=== PATIENT | female | born 1940 | race Caucasian/White ===

== ENCOUNTER 2018-05-08 01:51 | Inpatient (IN) | payer OTHER ==
[~2018-05-08] VITALS: Ht 160 cm; Wt 79.9 kg
[~2018-05-08 01:51] MED LIST: ADULT LOW DOSE81 M1 PO; ADVAIR 100/501 DISK IH; AZITHROMYCIN250 MG PO; BACTRIM,SEPT1 TABLET PO; CEFTIN500 MG PO; ESTRACE0.5 MG PO; FLORASTOR250 MG PO; HYDROCHLOROTH12.5 M1 PO; LEVAQUIN750 MG PO; LISINOPRIL10 MG PO; Levaquin PO; PERCOCET 5/31 TABLET PO; PRAVACHOL40 MG PO; PREDNISONE5 M1 PO; PREMARIN1.25 MG PO; PRINIVIL20 MG PO; SYMBICORT60 INHALAT IH; TYLENOL REGULA325 MG PO; VITAMIN D31000 UNIT PO; ZETIA10 MG PO; Zocor PO
[2018-05-08 02:50] LABS: ALBUMIN 3.4 g/dL (3.2-4.8); CHLORIDE 110 mEq/L (99-109); POTASSIUM 4.2 mEq/L (3.7-5.4); SODIUM 142 mEq/L (136-147)
[2018-05-08 02:55] LABS: GLUCOSE 129 mg/dL (70-99); TOTAL BILIRUBIN 0.2 mg/dL (0.0-1.0); TOTAL PROTEIN 5.6 g/dL (6.4-8.3)
[2018-05-08 02:56] LABS: ALKALINE PHOSPHATASE 69 IU/L (3-129); CREATININE 1.1 mg/dL (0.6-1.3); GFR ESTIMATE (CALCULATED) 51 mL/min/
[2018-05-08 02:57] LABS: UREA NITROGEN (BUN) 25 mg/dL (9-23)
[2018-05-08 02:58] LABS: AST (GOT) 19 IU/L (2-34); DIRECT BILIRUBIN 0.1 mg/dL (0.0-0.3)
[2018-05-08 02:59] LABS: ALT (GPT) 24 IU/L (3-49)
[2018-05-08 03:00] LABS: LIPASE 15 U/L (1.0-51.0)
[2018-05-08 03:01] LABS: TROP-I INTERPRETATION NEGATIVE; TROPONIN-I < 0.01 ng/mL (0.0-0.30)
[2018-05-08 03:43] LABS: BASOPHIL (%) 0.8 % (0-1); BASOPHIL COUNT 0.1 K/uL (0-0.1); EOSINOPHIL (%) 2.4 % (0-5); EOSINOPHIL COUNT 0.2 K/uL (0-0.3); HEMATOCRIT 30.7 % (36.0-46.0); HEMOGLOBIN 10.5 G/DL (11.9-15.5); IMMATURE GRANULOCYTE (%) 0.3 % (0.0-0.7); LYMPHOCYTE (%) 33.6 % (15-42); LYMPHOCYTE COUNT 2.5 K/uL (1.0-2.8); MCH 29.8 PG (29.0-34.0); MCHC 34.2 G/DL (30.0-36.0); MCV 87.2 FL (83-99); MONOCYTE COUNT 0.5 K/uL (0-0.8); NEUTROPHIL (%) 56.9 % (45-76); NEUTROPHIL COUNT 4.3 K/uL (1.8-6.4); RBC DIS.WIDTH-CV 14.5 % (11.8-14.6); RBC DIS.WIDTH-SD 46.3 % (39-53); RED BLOOD COUNT 3.52 M/uL (3.80-5.20); WHITE BLOOD COUNT 7.5 K/uL (4.1-10.2)
[2018-05-08 04:21] VITALS: BP 76/62
[2018-05-08 04:35] VITALS: BP 109/46
[2018-05-08 05:00] LABS: PLAT.SUFFICIENCY VERY DECREASED; PLATELET COUNT 87 K/uL (156-360)
[2018-05-08 05:34] LABS: INTER. NORMALIZED RATIO 1.2
[2018-05-08 07:48] LABS: HEMOGLOBIN 9.2 G/DL (11.9-15.5); MCH 30.5 PG (29.0-34.0); MCHC 34.1 G/DL (30.0-36.0); MCV 89.4 FL (83-99); PLATELET COUNT 201 K/uL (156-360); RBC DIS.WIDTH-CV 14.5 % (11.8-14.6); RBC DIS.WIDTH-SD 46.6 % (39-53); RED BLOOD COUNT 3.02 M/uL (3.80-5.20); WHITE BLOOD COUNT 7.7 K/uL (4.1-10.2)
[2018-05-08 08:03] LABS: CHLORIDE 115 MEQ/L (99-109); POTASSIUM 4.7 MEQ/L (3.7-5.4); SODIUM 143 MEQ/L (136-147)
[2018-05-08 08:09] LABS: CREATININE 0.9 MG/DL (0.6-1.3); GFR ESTIMATE (CALCULATED) > 59 mL/min/; GLUCOSE 138 mg/dL (70-99); UREA NITROGEN (BUN) 23 mg/dL (9-23)
[2018-05-08 12:33] LABS: HEMATOCRIT 33.8 % (36.0-46.0); MCH 30.2 PG (29.0-34.0); MCHC 33.1 G/DL (30.0-36.0); MCV 91.1 FL (83-99); RBC DIS.WIDTH-CV 14.7 % (11.8-14.6); RBC DIS.WIDTH-SD 49.3 % (39-53); WHITE BLOOD COUNT 7.7 K/uL (4.1-10.2)
[2018-05-08 13:30] LABS: PLAT.SUFFICIENCY ADEQUATE; PLATELET COUNT 152 K/uL (156-360)
[2018-05-08 13:31] LABS: HEMOGLOBIN 11.2 G/DL (11.9-15.5); RED BLOOD COUNT 3.71 M/uL (3.80-5.20)
[2018-05-08 16:00] VITALS: BP 128/54
[2018-05-08 16:30] VITALS: BP 128/54
[2018-05-08 21:11] VITALS: BP 138/63
[2018-05-08 23:54] VITALS: BP 136/61
[2018-05-09] VITALS (7 sets, daily range): BP systolic 132–190; BP diastolic 60–76
[2018-05-09 05:50] LABS: CHLORIDE 119 MEQ/L (99-109); CREATININE 1.1 MG/DL (0.6-1.3); GFR ESTIMATE (CALCULATED) 51 mL/min/; GLUCOSE 154 mg/dL (70-99); SODIUM 145 MEQ/L (136-147); UREA NITROGEN (BUN) 20 mg/dL (9-23)
[2018-05-09 08:39] LABS: HEMATOCRIT 25.4 % (36.0-46.0); HEMOGLOBIN 8.6 G/DL (11.9-15.5); MCH 30.7 PG (29.0-34.0); MCHC 33.9 G/DL (30.0-36.0); MCV 90.7 FL (83-99); PLATELET COUNT 176 K/uL (156-360); RBC DIS.WIDTH-CV 15.5 % (11.8-14.6); RBC DIS.WIDTH-SD 51.3 % (39-53); WHITE BLOOD COUNT 10.1 K/uL (4.1-10.2)
[2018-05-09] MEDS ORDERED: LISINOPRIL40 MG PO (14:44)
[2018-05-10] VITALS (8 sets, daily range): BP systolic 132–174; BP diastolic 60–74
[2018-05-10 05:36] LABS: HEMOGLOBIN 7.7 G/DL (11.9-15.5); MCH 29.8 PG (29.0-34.0); MCHC 32.1 G/DL (30.0-36.0); PLATELET COUNT 203 K/uL (156-360); RBC DIS.WIDTH-CV 15.8 % (11.8-14.6); RBC DIS.WIDTH-SD 53.5 % (39-53); RED BLOOD COUNT 2.58 M/uL (3.80-5.20)
[2018-05-10 06:02] LABS: CHLORIDE 116 MEQ/L (99-109); GFR ESTIMATE (CALCULATED) 57 mL/min/; GLUCOSE 116 mg/dL (70-99); POTASSIUM 4.2 MEQ/L (3.7-5.4); SODIUM 142 MEQ/L (136-147); UREA NITROGEN (BUN) 17 mg/dL (9-23)
[2018-05-10 12:56] LABS: BASOPHIL (%) 0.3 % (0-1); EOSINOPHIL COUNT 0.1 K/uL (0-0.3); HEMATOCRIT 23.5 % (36.0-46.0); HEMOGLOBIN 7.9 G/DL (11.9-15.5); IMMATURE GRANULOCYTE (%) 0.4 % (0.0-0.7); LYMPHOCYTE (%) 13.5 % (15-42); LYMPHOCYTE COUNT 1.2 K/uL (1.0-2.8); MCH 30.2 PG (29.0-34.0); MCHC 33.6 G/DL (30.0-36.0); MCV 89.7 FL (83-99); MONOCYTE (%) 6.4 % (3-12); MONOCYTE COUNT 0.6 K/uL (0-0.8); NEUTROPHIL (%) 78.4 % (45-76); PLATELET COUNT 198 K/uL (156-360); RBC DIS.WIDTH-CV 15.7 % (11.8-14.6); RBC DIS.WIDTH-SD 52.2 % (39-53); RED BLOOD COUNT 2.62 M/uL (3.80-5.20); WHITE BLOOD COUNT 8.9 K/uL (4.1-10.2)
[2018-05-11] VITALS (9 sets, daily range): BP systolic 158–210; BP diastolic 56–84
[2018-05-11 05:57] LABS: BASOPHIL (%) 0.5 % (0-1); BASOPHIL COUNT 0.1 K/uL (0-0.1); EOSINOPHIL (%) 0.7 % (0-5); EOSINOPHIL COUNT 0.1 K/uL (0-0.3); HEMATOCRIT 25.3 % (36.0-46.0); HEMOGLOBIN 8.4 G/DL (11.9-15.5); IMMATURE GRANULOCYTE (%) 0.5 % (0.0-0.7); LYMPHOCYTE (%) 8.8 % (15-42); LYMPHOCYTE COUNT 0.8 K/uL (1.0-2.8); MCH 30.1 PG (29.0-34.0); MCHC 33.2 G/DL (30.0-36.0); MCV 90.7 FL (83-99); MONOCYTE (%) 5.1 % (3-12); MONOCYTE COUNT 0.5 K/uL (0-0.8); NEUTROPHIL (%) 84.4 % (45-76); NEUTROPHIL COUNT 7.7 K/uL (1.8-6.4); RBC DIS.WIDTH-CV 15.7 % (11.8-14.6); RBC DIS.WIDTH-SD 52.7 % (39-53); RED BLOOD COUNT 2.79 M/uL (3.80-5.20); WHITE BLOOD COUNT 9.1 K/uL (4.1-10.2)
[2018-05-11 05:59] LABS: PLATELET COUNT 267 K/uL (156-360)
[2018-05-11 06:21] LABS: CHLORIDE 115 MEQ/L (99-109); CREATININE 0.8 MG/DL (0.6-1.3); GFR ESTIMATE (CALCULATED) > 59 mL/min/; GLUCOSE 145 mg/dL (70-99); SODIUM 146 MEQ/L (136-147); UREA NITROGEN (BUN) 14 mg/dL (9-23)
[2018-05-12] VITALS (7 sets, daily range): BP systolic 162–172; BP diastolic 56–70
[2018-05-12 06:37] LABS: HEMATOCRIT 23.2 % (36.0-46.0); HEMOGLOBIN 7.8 G/DL (11.9-15.5); MCH 29.8 PG (29.0-34.0); MCHC 33.6 G/DL (30.0-36.0); MCV 88.5 FL (83-99); PLATELET COUNT 333 K/uL (156-360); RBC DIS.WIDTH-CV 15.4 % (11.8-14.6); RBC DIS.WIDTH-SD 50.4 % (39-53); RED BLOOD COUNT 2.62 M/uL (3.80-5.20); WHITE BLOOD COUNT 10.1 K/uL (4.1-10.2)
[2018-05-12 07:00] LABS: CHLORIDE 116 MEQ/L (99-109); CREATININE 0.7 MG/DL (0.6-1.3); GFR ESTIMATE (CALCULATED) > 59 mL/min/; GLUCOSE 162 mg/dL (70-99); POTASSIUM 3.6 MEQ/L (3.7-5.4); SODIUM 146 MEQ/L (136-147); UREA NITROGEN (BUN) 10 mg/dL (9-23)
[2018-05-13] VITALS (11 sets, daily range): BP systolic 127–185; BP diastolic 40–78
[2018-05-13 06:08] LABS: HEMATOCRIT 24.6 % (36.0-46.0); HEMOGLOBIN 8.1 G/DL (11.9-15.5); MCH 29.3 PG (29.0-34.0); MCHC 32.9 G/DL (30.0-36.0); MCV 89.1 FL (83-99); PLATELET COUNT 276 K/uL (156-360); RBC DIS.WIDTH-CV 15.8 % (11.8-14.6); RBC DIS.WIDTH-SD 51.9 % (39-53); RED BLOOD COUNT 2.76 M/uL (3.80-5.20); WHITE BLOOD COUNT 7.5 K/uL (4.1-10.2)
[2018-05-13 06:35] LABS: CHLORIDE 112 MEQ/L (99-109); CREATININE 0.7 MG/DL (0.6-1.3); GFR ESTIMATE (CALCULATED) > 59 mL/min/; POTASSIUM 3.5 MEQ/L (3.7-5.4); SODIUM 145 MEQ/L (136-147); UREA NITROGEN (BUN) 14 mg/dL (9-23)
[2018-05-13 06:45] LABS: GLUCOSE 100 mg/dL (70-99)
[2018-05-14 04:00] VITALS: BP 162/68
[2018-05-14 09:30] VITALS: BP 172/68
[2018-05-14 10:17] LABS: HEMATOCRIT 22.8 % (36.0-46.0); HEMOGLOBIN 7.8 G/DL (11.9-15.5); MCH 29.7 PG (29.0-34.0); MCHC 34.2 G/DL (30.0-36.0); MCV 86.7 FL (83-99); RBC DIS.WIDTH-CV 15.8 % (11.8-14.6); RBC DIS.WIDTH-SD 50.1 % (39-53); RED BLOOD COUNT 2.63 M/uL (3.80-5.20); WHITE BLOOD COUNT 8.7 K/uL (4.1-10.2)
[2018-05-14 10:19] LABS: PLATELET COUNT 437 K/uL (156-360)
[2018-05-14 11:07] LABS: CHLORIDE 108 MEQ/L (99-109); CREATININE 0.6 MG/DL (0.6-1.3); GFR ESTIMATE (CALCULATED) > 59 mL/min/; GLUCOSE 112 mg/dL (70-99); POTASSIUM 3.2 MEQ/L (3.7-5.4); SODIUM 142 MEQ/L (136-147); UREA NITROGEN (BUN) 13 mg/dL (9-23)
[2018-05-14 11:31] VITALS: BP 166/58
[2018-05-14 16:02] VITALS: BP 168/56
[2018-05-14 20:03] VITALS: BP 142/58
[2018-05-14 23:43] VITALS: BP 168/62
[2018-05-15] VITALS (10 sets, daily range): BP systolic 122–164; BP diastolic 48–62
[2018-05-15 06:15] LABS: MCH 29.2 PG (29.0-34.0); MCHC 33.3 G/DL (30.0-36.0); MCV 87.5 FL (83-99); PLATELET COUNT 477 K/uL (156-360); RBC DIS.WIDTH-CV 15.7 % (11.8-14.6); RBC DIS.WIDTH-SD 50.8 % (39-53); WHITE BLOOD COUNT 8.6 K/uL (4.1-10.2)
[2018-05-15 06:37] LABS: CHLORIDE 110 MEQ/L (99-109); CREATININE 0.7 MG/DL (0.6-1.3); GFR ESTIMATE (CALCULATED) > 59 mL/min/; GLUCOSE 111 mg/dL (70-99); POTASSIUM 3.3 MEQ/L (3.7-5.4); SODIUM 145 MEQ/L (136-147); UREA NITROGEN (BUN) 11 mg/dL (9-23)
[2018-05-15 10:05] LABS: HEMATOCRIT 23.5 % (36.0-46.0); HEMOGLOBIN 7.9 G/DL (11.9-15.5); MCH 29.2 PG (29.0-34.0); MCHC 33.6 G/DL (30.0-36.0); MCV 86.7 FL (83-99); PLATELET COUNT 531 K/uL (156-360); RBC DIS.WIDTH-CV 15.7 % (11.8-14.6); RBC DIS.WIDTH-SD 49.8 % (39-53); RED BLOOD COUNT 2.71 M/uL (3.80-5.20); WHITE BLOOD COUNT 9.6 K/uL (4.1-10.2)
[2018-05-16 06:21] LABS: HEMATOCRIT 25.5 % (36.0-46.0); HEMOGLOBIN 8.7 G/DL (11.9-15.5); MCH 29.4 PG (29.0-34.0); MCHC 34.1 G/DL (30.0-36.0); MCV 86.1 FL (83-99); PLATELET COUNT 517 K/uL (156-360); RBC DIS.WIDTH-CV 15.5 % (11.8-14.6); RED BLOOD COUNT 2.96 M/uL (3.80-5.20); WHITE BLOOD COUNT 9.3 K/uL (4.1-10.2)
[2018-05-16 06:44] LABS: CHLORIDE 108 MEQ/L (99-109); CREATININE 0.6 MG/DL (0.6-1.3); GFR ESTIMATE (CALCULATED) > 59 mL/min/; GLUCOSE 100 mg/dL (70-99); POTASSIUM 3.7 MEQ/L (3.7-5.4); SODIUM 144 MEQ/L (136-147); UREA NITROGEN (BUN) 11 mg/dL (9-23)
[2018-05-16] MEDS ORDERED: AMOX TR-K CLV1 EAC4 PO (08:04)
[2018-05-16] MEDS ORDERED: NIFEREX-150,FE150 MG PO (08:04)
[2018-05-16] MEDS ORDERED: LOPRESSOR25 MG PO (10:40)
[2018-05-16] MEDS ORDERED: NORVASC10 MG PO (10:40)
[2018-05-16] MEDS ORDERED: NORCO 5/3251 TABLET PO (10:43)
[2018-05-16] MEDS ORDERED: NORCO 10/3251 TABLET PO (10:43)
[2018-05-16] MEDS ORDERED: TYLENOL EXTRA500 MG PO (10:45)
[2018-05-16] MEDS ORDERED: PROVENTIL,2.5 MG/0.5 IH (10:47)
[2018-05-16] MEDS ORDERED: PEPCID20 MG PO (10:47)
== END 2018-05-16 10:31 | DRG 329 ==
LOC: EME → EDBD 01:59 → 3EAST 06:37 → 4EAST 06:37 → EDOF 06:37 → ENRESERV 06:40 → 4EAST 15:46 → ENRESERV 05-10 20:20 → 3EAST 05-10 21:50
PROVIDERS: Emergency Medicine; Internal Medicine; Physician Assistant; Surgery
DX: K57.31 Diverticulosis of large intestine without perforation or abscess with bleeding (principal); R57.8 Other shock; R09.02 Hypoxemia; D69.6 Thrombocytopenia, unspecified; D62 Acute posthemorrhagic anemia; E83.51 Hypocalcemia; J44.9 Chronic obstructive pulmonary disease, unspecified; E78.5 Hyperlipidemia, unspecified; E87.70 Fluid overload, unspecified; S01.21XA Laceration without foreign body of nose, initial encounter; I12.9 Hypertensive chronic kidney disease with stage 1 through stage 4 chronic kidney disease, or unspecified chronic kidney disease; N18.3 Chronic kidney disease, stage 3 (moderate); E66.01 Morbid (severe) obesity due to excess calories; Z68.32 Body mass index [BMI] 32.0-32.9, adult; W18.39XA Other fall on same level, initial encounter; E87.6 Hypokalemia; Y92.092 Bedroom in other non-institutional residence as the place of occurrence of the external cause; Y93.89 Activity, other specified; Z90.710 Acquired absence of both cervix and uterus; Z87.01 Personal history of pneumonia (recurrent); Z86.73 Personal history of transient ischemic attack (TIA), and cerebral infarction without residual deficits; Z80.0 Family history of malignant neoplasm of digestive organs; Z79.899 Other long term (current) drug therapy
CPT/HCPCS: 70450; 71045; 74177; 80047; 80048; 80048 91; 80076; 83605; 83690; 84484; 85025; 85027; 85610; 85730; 86850; 86900; 86901; 86920; 87070; 87075; 87076; 87077; 87185; 87186; 87205; 88304; 88307; 93005; 94640; 94760; 94799; 97530 GO; 99281; 99285; C1751; C9113; J0330; J0360; J1170; J2370; J2405; J2710; J2765; J3010; J7030; J7050; J7643; P9016; S0074

== ENCOUNTER 2018-05-15 10:49 | Inpatient (IN) | payer OTHER ==
[~2018-05-15] VITALS: Ht 165.1 cm; Wt 77.4 kg
[~2018-05-15 10:49] MED LIST changes: +LISINOPRIL40 MG PO
[2018-05-16] MEDS ORDERED: NIFEREX-150,FE150 MG PO (08:04)
[2018-05-16] MEDS ORDERED: AMOX TR-K CLV1 EAC4 PO (08:04)
[2018-05-16] MEDS ORDERED: NORVASC10 MG PO (10:40)
[2018-05-16] MEDS ORDERED: LOPRESSOR25 MG PO (10:40)
[2018-05-16 10:42] VITALS: BP 146/64
[2018-05-16] MEDS ORDERED: NORCO 5/3251 TABLET PO (10:43)
[2018-05-16] MEDS ORDERED: NORCO 10/3251 TABLET PO (10:43)
[2018-05-16] MEDS ORDERED: TYLENOL EXTRA500 MG PO (10:45)
[2018-05-16] MEDS ORDERED: PEPCID20 MG PO (10:47)
[2018-05-16] MEDS ORDERED: PROVENTIL,2.5 MG/0.5 IH (10:47)
[2018-05-16 14:20] VITALS: BP 166/71
[2018-05-16 15:11] VITALS: BP 148/60
[2018-05-16 23:09] VITALS: BP 145/64
[2018-05-17 06:12] VITALS: BP 160/67
[2018-05-17 07:14] LABS: HEMATOCRIT 28.1 % (36.0-46.0); HEMOGLOBIN 9.5 G/DL (11.9-15.5); MCH 28.9 PG (29.0-34.0); MCHC 33.8 G/DL (30.0-36.0); MCV 85.4 FL (83-99); PLATELET COUNT 608 K/uL (156-360); RBC DIS.WIDTH-CV 15.5 % (11.8-14.6); RBC DIS.WIDTH-SD 48.3 % (39-53); RED BLOOD COUNT 3.29 M/uL (3.80-5.20); WHITE BLOOD COUNT 10.8 K/uL (4.1-10.2)
[2018-05-17 07:35] LABS: ALBUMIN 2.4 G/DL (3.2-4.8); ALKALINE PHOSPHATASE 97 IU/L (3-129); ALT (GPT) 24 IU/L (3-49); AST (GOT) 22 IU/L (2-34); CHLORIDE 108 MEQ/L (99-109); CREATININE 0.7 MG/DL (0.6-1.3); GFR ESTIMATE (CALCULATED) > 59 mL/min/; GLUCOSE 95 mg/dL (70-99); POTASSIUM 3.8 MEQ/L (3.7-5.4); SODIUM 144 MEQ/L (136-147); TOTAL BILIRUBIN 0.3 MG/DL (0.0-1.0); TOTAL PROTEIN 4.8 G/DL (6.4-8.3); UREA NITROGEN (BUN) 13 mg/dL (9-23)
[2018-05-17 16:00] VITALS: BP 159/60
[2018-05-18 05:52] VITALS: BP 148/64
[2018-05-18 12:46] LABS: HEMATOCRIT 28.9 % (36.0-46.0); HEMOGLOBIN 9.6 G/DL (11.9-15.5); MCHC 33.2 G/DL (30.0-36.0); MCV 87.3 FL (83-99); PLATELET COUNT 630 K/uL (156-360); RBC DIS.WIDTH-CV 15.7 % (11.8-14.6); RED BLOOD COUNT 3.31 M/uL (3.80-5.20); WHITE BLOOD COUNT 13.2 K/uL (4.1-10.2)
[2018-05-18 12:53] LABS: CHLORIDE 107 MEQ/L (99-109); CREATININE 0.8 MG/DL (0.6-1.3); GFR ESTIMATE (CALCULATED) > 59 mL/min/; GLUCOSE 99 mg/dL (70-99); POTASSIUM 4.3 MEQ/L (3.7-5.4); SODIUM 144 MEQ/L (136-147); UREA NITROGEN (BUN) 13 mg/dL (9-23)
[2018-05-18 15:46] VITALS: BP 140/64
[2018-05-19 05:25] VITALS: BP 135/63
[2018-05-19 10:53] LABS: HEMATOCRIT 26.3 % (36.0-46.0); HEMOGLOBIN 8.8 G/DL (11.9-15.5); MCH 29.1 PG (29.0-34.0); MCHC 33.5 G/DL (30.0-36.0); MCV 87.1 FL (83-99); PLATELET COUNT 631 K/uL (156-360); RBC DIS.WIDTH-CV 15.7 % (11.8-14.6); RBC DIS.WIDTH-SD 49.9 % (39-53); RED BLOOD COUNT 3.02 M/uL (3.80-5.20); WHITE BLOOD COUNT 10.8 K/uL (4.1-10.2)
[2018-05-19 11:23] LABS: CHLORIDE 109 MEQ/L (99-109); CREATININE 0.9 MG/DL (0.6-1.3); GFR ESTIMATE (CALCULATED) > 59 mL/min/; GLUCOSE 108 mg/dL (70-99); POTASSIUM 3.5 MEQ/L (3.7-5.4); SODIUM 146 MEQ/L (136-147); UREA NITROGEN (BUN) 12 mg/dL (9-23)
[2018-05-19 15:21] VITALS: BP 121/63
[2018-05-20 04:00] VITALS: BP 139/62
[2018-05-20 05:49] LABS: BASOPHIL (%) 0.4 % (0-1); EOSINOPHIL (%) 2.4 % (0-5); EOSINOPHIL COUNT 0.2 K/uL (0-0.3); HEMATOCRIT 24.2 % (36.0-46.0); HEMOGLOBIN 8.1 G/DL (11.9-15.5); IMMATURE GRANULOCYTE (%) 0.6 % (0.0-0.7); LYMPHOCYTE (%) 9.5 % (15-42); MCH 28.9 PG (29.0-34.0); MCHC 33.5 G/DL (30.0-36.0); MCV 86.4 FL (83-99); MONOCYTE (%) 10.7 % (3-12); MONOCYTE COUNT 1.1 K/uL (0-0.8); NEUTROPHIL (%) 76.4 % (45-76); NEUTROPHIL COUNT 7.7 K/uL (1.8-6.4); PLATELET COUNT 602 K/uL (156-360); RBC DIS.WIDTH-CV 15.2 % (11.8-14.6); RBC DIS.WIDTH-SD 48.5 % (39-53); WHITE BLOOD COUNT 10.1 K/uL (4.1-10.2)
[2018-05-20 06:56] LABS: CHLORIDE 108 MEQ/L (99-109); CREATININE 0.8 MG/DL (0.6-1.3); GFR ESTIMATE (CALCULATED) > 59 mL/min/; GLUCOSE 108 mg/dL (70-99); SODIUM 143 MEQ/L (136-147); UREA NITROGEN (BUN) 10 mg/dL (9-23)
[2018-05-20 14:42] LABS: APPEARANCE SL.HAZY ((CLEAR)); BILIRUBIN NEGATIVE; BLOOD NEGATIVE; COLOR YELLOW ((YELLOW)); GLUCOSE (STRIP) NEGATIVE; KETONES 5; LEUKOCYTES NEGATIVE; NITRITE NEGATIVE; PROTEIN (STRIP) 30; SPECIFIC GRAVITY 1.027 (1.000-1.030); UROBILINOGEN 0.2 MG/DL (0.2-1.0)
[2018-05-20 15:54] LABS: BACTERIA NONE SEEN /HPF; EPITHELIAL CELLS 4+ /HPF; MUCUS NONE SEEN /LPF; RED BLOOD CELLS 0-5 /HPF (0-5); WHITE BLOOD CELLS 0-5 /HPF (0-5)
[2018-05-21 06:02] VITALS: BP 125/56
[2018-05-21 15:07] VITALS: BP 120/56
[2018-05-22 04:50] VITALS: BP 124/58
[2018-05-22 06:25] LABS: HEMATOCRIT 26.6 % (36.0-46.0); HEMOGLOBIN 8.8 G/DL (11.9-15.5); MCH 28.6 PG (29.0-34.0); MCHC 33.1 G/DL (30.0-36.0); MCV 86.4 FL (83-99); PLATELET COUNT 685 K/uL (156-360); RBC DIS.WIDTH-CV 15.4 % (11.8-14.6); RBC DIS.WIDTH-SD 48.8 % (39-53); RED BLOOD COUNT 3.08 M/uL (3.80-5.20); WHITE BLOOD COUNT 6.5 K/uL (4.1-10.2)
[2018-05-22 06:48] LABS: CHLORIDE 108 MEQ/L (99-109); CREATININE 0.9 MG/DL (0.6-1.3); GFR ESTIMATE (CALCULATED) > 59 mL/min/; GLUCOSE 95 mg/dL (70-99); POTASSIUM 4.2 MEQ/L (3.7-5.4); SODIUM 142 MEQ/L (136-147); UREA NITROGEN (BUN) 12 mg/dL (9-23)
[2018-05-22 15:04] VITALS: BP 110/53
[2018-05-23 05:56] VITALS: BP 151/68
[2018-05-23 15:02] VITALS: BP 132/63
[2018-05-23 21:00] VITALS: BP 137/71
[2018-05-24 05:37] VITALS: BP 133/61
[2018-05-24 19:05] VITALS: BP 134/60
[2018-05-25 05:43] VITALS: BP 140/66
[2018-05-25] MEDS ORDERED: NIFEREX-150,FE150 MG PO (10:48)
[2018-05-25] MEDS ORDERED: LISINOPRIL20 MG PO (10:48)
[2018-05-25] MEDS ORDERED: PEPCID20 MG PO (10:48)
[2018-05-25] MEDS ORDERED: K-DUR20 MEQ PO (10:48)
[2018-05-25] MEDS ORDERED: NORVASC10 MG PO (10:48)
[2018-05-25] MEDS ORDERED: METOPROLOL SUCC50 MG PO (10:48)
[2018-05-25 16:00] VITALS: BP 121/52
== END 2018-05-25 18:25 | disposition home health service (06) | DRG 949 ==
LOC: 3WEST 10:49 → ENPENDDIS 05-25 → 3WEST 05-25 18:25
PROVIDERS: Family Medicine Sports Medicine; Physical Medicine & Rehabilitation Pain Medicine; Surgery
PROC: F07M0ZZ Range of Motion and Joint Mobility Treatment of Musculoskeletal System - Whole Body (ICD-10-PCS; principal; 2018-05-16)
PROC: 0W9G30Z Drainage of Peritoneal Cavity with Drainage Device, Percutaneous Approach (ICD-10-PCS; 2018-05-20)
DX: Z48.815 Encounter for surgical aftercare following surgery on the digestive system (principal); T81.4XXA Infection following a procedure, initial encounter; R53.1 Weakness; K65.1 Peritoneal abscess; K55.9 Vascular disorder of intestine, unspecified; K57.92 Diverticulitis of intestine, part unspecified, without perforation or abscess without bleeding; D62 Acute posthemorrhagic anemia; E66.9 Obesity, unspecified; R26.9 Unspecified abnormalities of gait and mobility; I10 Essential (primary) hypertension; R63.0 Anorexia; G89.18 Other acute postprocedural pain; R79.89 Other specified abnormal findings of blood chemistry; E87.6 Hypokalemia; E78.5 Hyperlipidemia, unspecified; E86.0 Dehydration; J43.9 Emphysema, unspecified; B96.5 Pseudomonas (aeruginosa) (mallei) (pseudomallei) as the cause of diseases classified elsewhere; N28.1 Cyst of kidney, acquired; M47.816 Spondylosis without myelopathy or radiculopathy, lumbar region; K44.9 Diaphragmatic hernia without obstruction or gangrene; J47.9 Bronchiectasis, uncomplicated; Z90.710 Acquired absence of both cervix and uterus; Z86.73 Personal history of transient ischemic attack (TIA), and cerebral infarction without residual deficits; Z90.49 Acquired absence of other specified parts of digestive tract; Z93.3 Colostomy status; Z68.28 Body mass index [BMI] 28.0-28.9, adult
CPT/HCPCS: 49406; 71046; 74176; 76937; 80048; 80053; 81003; 85025; 85027; 87070; 87075; 87076; 87077; 87185; 87186; 87205; 94799; 97110 GO; 97530 GP; A6260; C1729; C1769; J1644; J2543; J3010; J7050

== ENCOUNTER → 2018-06-01 | Outpatient (CLI) | payer OTHER ==
[~2018-06-01] MED LIST changes: +AMOX TR-K CLV1 EAC4 PO; +K-DUR20 MEQ PO; +LISINOPRIL20 MG PO; +LOPRESSOR25 MG PO; +METOPROLOL SUCC50 MG PO; +NIFEREX-150,FE150 MG PO; +NORCO 10/3251 TABLET PO; +NORCO 5/3251 TABLET PO; +NORVASC10 MG PO; +PEPCID20 MG PO; +PROVENTIL,2.5 MG/0.5 IH; +TYLENOL EXTRA500 MG PO
== END | disposition home or self-care (01) ==
LOC: AMB 12:03
PROC: 0HB7XZZ Excision of Abdomen Skin, External Approach (ICD-10-PCS; principal; 2018-06-01)
DX: T81.89XA Other complications of procedures, not elsewhere classified, initial encounter (principal); T81.4XXA Infection following a procedure, initial encounter; Z93.3 Colostomy status; Z90.49 Acquired absence of other specified parts of digestive tract; Z87.19 Personal history of other diseases of the digestive system; Y83.8 Other surgical procedures as the cause of abnormal reaction of the patient, or of later complication, without mention of misadventure at the time of the procedure; Y83.2 Surgical operation with anastomosis, bypass or graft as the cause of abnormal reaction of the patient, or of later complication, without mention of misadventure at the time of the procedure
CPT/HCPCS: 99212

== ENCOUNTER 2018-06-12 16:19 | Inpatient (IN) | payer OTHER ==
[~2018-06-12] VITALS: Ht 165.1 cm; Wt 73.6 kg
[2018-06-12 17:27] LABS: HEMATOCRIT 33.4 % (36.0-46.0); HEMOGLOBIN 10.5 G/DL (11.9-15.5); MCH 28.4 PG (29.0-34.0); MCHC 31.4 G/DL (30.0-36.0); MCV 90.3 FL (83-99); RBC DIS.WIDTH-CV 15.3 % (11.8-14.6); RBC DIS.WIDTH-SD 50.8 % (39-53); WHITE BLOOD COUNT 7.6 K/uL (4.1-10.2)
[2018-06-12 17:31] LABS: CHLORIDE 108 mEq/L (99-109); POTASSIUM 4.8 mEq/L (3.7-5.4); SODIUM 140 mEq/L (136-147)
[2018-06-12 17:32] LABS: GLUCOSE 101 mg/dL (70-99)
[2018-06-12 17:36] LABS: GFR ESTIMATE (CALCULATED) 57 mL/min/
[2018-06-12 17:37] LABS: UREA NITROGEN (BUN) 17 mg/dL (9-23)
[2018-06-12 18:04] LABS: PLAT.SUFFICIENCY ADEQUATE; PLATELET CLUMPS PRESENT - PLATELET COUNT APPEARS ADEQUATE
[2018-06-12 18:08] LABS: PLATELET COUNT 268 K/uL (156-360)
[2018-06-12 18:20] LABS: PTT 27.4 SEC (25-37)
[2018-06-12] MEDS ORDERED: NORVASC10 MG PO (21:47)
[2018-06-12] MEDS ORDERED: CALTRATE 600 +1 EAC1 PO (21:48)
[2018-06-12] MEDS ORDERED: SYMBICORT60 INHALAT IH (21:48)
[2018-06-12] MEDS ORDERED: FEOSOL325 MG PO (21:48)
[2018-06-13 01:00] VITALS: BP 153/66
[2018-06-13 03:59] VITALS: BP 130/63
[2018-06-13 06:03] LABS: BASOPHIL (%) 1.5 % (0-1); BASOPHIL COUNT 0.1 K/uL (0-0.1); EOSINOPHIL (%) 4.9 % (0-5); EOSINOPHIL COUNT 0.3 K/uL (0-0.3); HEMATOCRIT 27.5 % (36.0-46.0); HEMOGLOBIN 8.7 G/DL (11.9-15.5); IMMATURE GRANULOCYTE (%) 0.4 % (0.0-0.7); LYMPHOCYTE (%) 29.7 % (15-42); LYMPHOCYTE COUNT 1.6 K/uL (1.0-2.8); MCH 28.2 PG (29.0-34.0); MCHC 31.6 G/DL (30.0-36.0); MONOCYTE (%) 10.4 % (3-12); MONOCYTE COUNT 0.6 K/uL (0-0.8); NEUTROPHIL (%) 53.1 % (45-76); NEUTROPHIL COUNT 2.8 K/uL (1.8-6.4); PLATELET COUNT 231 K/uL (156-360); RBC DIS.WIDTH-CV 15.3 % (11.8-14.6); RBC DIS.WIDTH-SD 49.9 % (39-53); RED BLOOD COUNT 3.09 M/uL (3.80-5.20); WHITE BLOOD COUNT 5.3 K/uL (4.1-10.2)
[2018-06-13 06:05] LABS: INTER. NORMALIZED RATIO 1.1
[2018-06-13 06:08] LABS: PTT 57.9 SEC (25-37)
[2018-06-13 06:26] LABS: CHLORIDE 108 MEQ/L (99-109); CREATININE 0.8 MG/DL (0.6-1.3); GFR ESTIMATE (CALCULATED) > 59 mL/min/; GLUCOSE 96 mg/dL (70-99); POTASSIUM 4.3 MEQ/L (3.7-5.4); SODIUM 139 MEQ/L (136-147); UREA NITROGEN (BUN) 14 mg/dL (9-23)
[2018-06-13 07:31] VITALS: BP 129/50
[2018-06-13 11:28] VITALS: BP 121/57
[2018-06-13 11:40] LABS: ALBUMIN 3.1 g/dL (3.2-4.8); CHLORIDE 109 mEq/L (99-109); POTASSIUM 4.2 mEq/L (3.7-5.4); SODIUM 141 mEq/L (136-147)
[2018-06-13 11:42] LABS: GLUCOSE 74 mg/dL (70-99); TOTAL PROTEIN 5.4 g/dL (6.4-8.3)
[2018-06-13 11:44] LABS: TOTAL BILIRUBIN 0.4 mg/dL (0.0-1.0)
[2018-06-13 11:46] LABS: ALKALINE PHOSPHATASE 74 IU/L (3-129); CREATININE 0.8 mg/dL (0.6-1.3); GFR ESTIMATE (CALCULATED) > 59 mL/min/
[2018-06-13 11:47] LABS: AST (GOT) 35 IU/L (2-34); UREA NITROGEN (BUN) 15 mg/dL (9-23)
[2018-06-13 11:49] LABS: ALT (GPT) 37 IU/L (3-49)
[2018-06-13 14:05] LABS: FERRITIN 220 NG/ML (10-291)
[2018-06-13 14:09] LABS: FOLIC ACID (FOLATE) > 22.0 NG/ML (5.0-22.0)
[2018-06-13 15:30] VITALS: BP 122/56
[2018-06-13 16:09] LABS: IRON 19 MCG/DL (35-150); TRANSFERRIN (TIBC) 193.4 mg/dL (215-380); TRANSFERRIN SATUR. 10 % (20-55)
[2018-06-13 19:30] VITALS: BP 128/60
[2018-06-14] VITALS: BP 120/55
[2018-06-14 03:58] VITALS: BP 129/61
[2018-06-14 07:36] VITALS: BP 120/59
[2018-06-14 08:45] LABS: BASOPHIL (%) 1.3 % (0-1); BASOPHIL COUNT 0.1 K/uL (0-0.1); EOSINOPHIL (%) 5.1 % (0-5); EOSINOPHIL COUNT 0.3 K/uL (0-0.3); HEMATOCRIT 27.8 % (36.0-46.0); HEMOGLOBIN 8.9 G/DL (11.9-15.5); IMMATURE GRANULOCYTE (%) 0.2 % (0.0-0.7); LYMPHOCYTE (%) 25.6 % (15-42); LYMPHOCYTE COUNT 1.4 K/uL (1.0-2.8); MCH 28.6 PG (29.0-34.0); MCV 89.4 FL (83-99); MONOCYTE (%) 12.8 % (3-12); MONOCYTE COUNT 0.7 K/uL (0-0.8); NEUTROPHIL COUNT 2.9 K/uL (1.8-6.4); PLATELET COUNT 272 K/uL (156-360); RBC DIS.WIDTH-CV 14.8 % (11.8-14.6); RBC DIS.WIDTH-SD 47.8 % (39-53); RED BLOOD COUNT 3.11 M/uL (3.80-5.20); WHITE BLOOD COUNT 5.3 K/uL (4.1-10.2)
[2018-06-14 11:58] VITALS: BP 113/53
[2018-06-14 11:59] LABS: INTER. NORMALIZED RATIO 1.1
[2018-06-14 12:01] LABS: PTT 49.4 SEC (25-37)
[2018-06-14 16:06] VITALS: BP 125/60
[2018-06-14 20:00] VITALS: BP 126/58
[2018-06-15 00:13] VITALS: BP 130/55
[2018-06-15 04:03] VITALS: BP 117/53
[2018-06-15 05:46] LABS: BASOPHIL (%) 1.3 % (0-1); BASOPHIL COUNT 0.1 K/uL (0-0.1); EOSINOPHIL (%) 5.3 % (0-5); EOSINOPHIL COUNT 0.3 K/uL (0-0.3); HEMOGLOBIN 8.8 G/DL (11.9-15.5); IMMATURE GRANULOCYTE (%) 0.2 % (0.0-0.7); LYMPHOCYTE COUNT 1.5 K/uL (1.0-2.8); MCH 27.6 PG (29.0-34.0); MCHC 31.4 G/DL (30.0-36.0); MCV 87.8 FL (83-99); MONOCYTE (%) 13.6 % (3-12); MONOCYTE COUNT 0.6 K/uL (0-0.8); NEUTROPHIL (%) 47.6 % (45-76); NEUTROPHIL COUNT 2.2 K/uL (1.8-6.4); PLATELET COUNT 306 K/uL (156-360); RBC DIS.WIDTH-CV 14.6 % (11.8-14.6); RED BLOOD COUNT 3.19 M/uL (3.80-5.20); WHITE BLOOD COUNT 4.7 K/uL (4.1-10.2)
[2018-06-15 07:07] VITALS: BP 117/58
[2018-06-15] MEDS ORDERED: ELIQUIS5 MG PO (11:21)
[2018-06-15 12:05] VITALS: BP 102/50
== END 2018-06-15 14:28 | disposition home or self-care (01) | DRG 301 ==
LOC: EME 16:19 → 5SOUTH 23:49 → EDOF 23:49 → 5SOUTH 06-13 00:39
PROVIDERS: Hospitalist; Internal Medicine; Physician Assistant
DX: I82.449 Acute embolism and thrombosis of unspecified tibial vein (principal); I82.422 Acute embolism and thrombosis of left iliac vein; D64.9 Anemia, unspecified; R60.0 Localized edema; R53.1 Weakness; R26.9 Unspecified abnormalities of gait and mobility; E78.5 Hyperlipidemia, unspecified; I10 Essential (primary) hypertension; J47.9 Bronchiectasis, uncomplicated; J44.9 Chronic obstructive pulmonary disease, unspecified; E83.51 Hypocalcemia; E87.6 Hypokalemia; Z93.3 Colostomy status; Z79.82 Long term (current) use of aspirin; Z87.01 Personal history of pneumonia (recurrent); Z90.710 Acquired absence of both cervix and uterus; Z86.73 Personal history of transient ischemic attack (TIA), and cerebral infarction without residual deficits; Z90.49 Acquired absence of other specified parts of digestive tract
CPT/HCPCS: 71275; 80048; 80048 91; 80053; 82607; 82728; 82746; 83540; 83880; 84466; 85025; 85027; 85610; 85730; 93971; 94640; 94799; 99281; 99284; J3420; J7030

== ENCOUNTER → 2018-06-25 | Outpatient (CLI) | payer OTHER ==
[~2018-06-25] MED LIST changes: +CALTRATE 600 +1 EAC1 PO; +ELIQUIS5 MG PO; +FEOSOL325 MG PO
== END | disposition home or self-care (01) ==
LOC: AMB 11:58
PROC: 0J9800Z Drainage of Abdomen Subcutaneous Tissue and Fascia with Drainage Device, Open Approach (ICD-10-PCS; principal; 2018-06-25)
DX: T81.4XXA Infection following a procedure, initial encounter (principal); B99.8 Other infectious disease